=== PATIENT | male | born 1975 | race Two or more races ===

== ENCOUNTER 2021-08-09 11:03 | Emergency (ER) | payer OTHER ==
[~2021-08-09] VITALS: Ht 167.6 cm; Wt 81.6 kg
[2021-08-09] MEDS ORDERED: NORFLEX100MG PO (14:31)
[2021-08-09] MEDS ORDERED: KETO10TA2 PO (14:31)
== END 2021-08-09 22:45 | disposition home or self-care (01) ==
LOC: ER 11:03
DX: M25.511 Pain in right shoulder (principal)